=== PATIENT | male | born 1960 | race Caucasian/White ===

== ENCOUNTER 2016-08-15 10:17 | Emergency (ER) | payer BC ==
--- NOTE | ~2016-08-15 | CT2 ---
[facility] A Service of [facility] & [facility] RADIOLOGY TEXT RESULTS PATIENT: STEPAN MAHAN LOCATION: SED : 62 UNIT #: [id number] AGE: [address]: Shar Koenig MD SEX: M ORDER DR: [id number] [address] [address] [id number] E MR#: [id number] #: [id number] NAME: STEPAN MAHAN : 1960 SEX: M STUDY DATE/TIME: 08/15/2016 1200 UNIT: SED ROOM: STUDY DESCRIPTION: CT Abd and Pelv W Cont Attending Physician: Shar Koenig M.D. Ordering Physician: Shar Koenig M.D. Primary Care Physician: Juni Miner M.D. MEDICAL IMAGING REPORT This report is preliminary unless electronic signature is present. EXAM CT abdomen and pelvis with contrast 08/15/2016 12 o'clock hours HISTORY Patient complained of abdominal pain, vomiting and diarrhea after eating shell fish on 08/11/2016. COMPARISON CT abdomen 07/30/[address] images were obtained from the lung bases through the pubic symphysis with intravenous contrast only. Sagittal and coronal reconstructions were performed. Contrast was Isovue-370 100 mL IV. Total exam DLP 2230 mGy-cm. This CT exam was performed with one or more of the following radiation dose reduction techniques: automatic exposure control, adjustment of mA and/or kV according to patient size, and iterative reconstruction. FINDINGS Images through the lung bases demonstrate stable emphysematous change. There is a stable 4-5 mm noncalcified nodule in the right middle lobe unchanged from 07/30/2015 likely benign. Images through the abdomen demonstrate low attenuation of the liver consistent with fatty change similar to prior exam. The spleen, pancreas and bile ducts are normal. The gallbladder is very contracted. No stones are seen. The adrenal glands are normal. The kidneys demonstrate cysts bilaterally. There is an exophytic dense lesion from the lower pole left kidney measuring 1.8 cm and 69 Hounsfield units. This has increased from 1.6 cm on 07/30/2015. Differential STS. [facility] A Service of [facility] & [facility] RADIOLOGY TEXT RESULTS PATIENT: STEPAN MAHAN LOCATION: SED : 62 UNIT #: [id number] AGE: [address]: Shar Koenig MD SEX: M ORDER DR: considerations include a complex dense cyst versus a solid renal mass. Further characterization is warranted if not recently performed. Consider further initial evaluation with ultrasound. Consider multiphase renal mass protocol CT if ultrasound cannot confirm cystic nature of this lesion. The abdominal aorta is normal in caliber. There are no renal or ureteral calculi. The stomach is contracted and unopacified but appears normal. There is no small bowel distension. There is slightly increased amount of fluid in the small bowel but no wall thickening. The terminal ileum is normal. There is no evidence of appendicitis or colonic wall thickening. The patient is noted to have a few lymph nodes which are mildly prominent and including a node anterior to the dome of the liver measuring 1.7 cm previously 1.7 cm. There are very small lymph nodes in the central mesenteric fat all measuring less than 1 cm and some inguinal nodes bilaterally. The largest right inguinal node is 2.1 x 1.7 cm similar to 07/30/2015. IMPRESSION 1. There is no bowel obstruction, renal or ureteral stone. There is slightly increased amount of fluid in the small bowel which can be seen in enteritis. There is no bowel wall thickening. 2. Bilateral renal cysts but no stones. 3. Indeterminate exophytic lesion from the lower pole left kidney measuring 1.8 cm previously 1.6 cm on 07/30/2015. This measures 63 Hounsfield units and could therefore represent a complex cyst versus an enhancing mass. Suggest further evaluation with renal ultrasound. If renal ultrasound does not confirm this to be cystic, then further evaluation with a multiphase renal mass protocol CT is recommended. 4. There are small mildly prominent lymph nodes present anterior to the liver measuring 1.7 cm with small mesenteric nodes and small inguinal nodes. These nodes are similar to 07/30/2015 favoring a benign etiology. 1. Dictated by... Pao Escalera M.D. THIS IS AN ELECTRONICALLY VERIFIED REPORT Pao Escalera M.D. at 08/16/2016 9:29 AM Gaetano TD: 08/15/2016 16:59 JOB #: [id number] MEDICAL IMAGING REPORT Page 1 of 1
[~2016-08-15 10:17] MED LIST: ALBUTEROL17 GM INH; ALEVE220 M1; BENZONATATE PO; CATAFLAM50 MG PO; CELEXA; CLEOCIN150 MG; DICYCLOMINE HCL20 MG PO; DOCUSATE SODIU100 MG PO; FLEXERIL PO; IBUPROFEN800 MG; MEDROL4 MG/DOSE- PO; NO MEDICATIONS; PHENERGAN W/CO120 ML PO; PHENERGAN25 MG PO; PREDNISONE PO; PREDNISONE50 MG PO; TYLENOL #3 PO; ULTRAM PO; VICODIN; VOLTAREN50 MG PO; ZITHROMAX PO
[2016-08-15 11:02] LABS: URINE SOURCE CLEAN CATCH
[2016-08-15 11:04] LABS: URINE APPEARANCE CLEAR; URINE BILIRUBIN NEG (NEG); URINE BLOOD NEG (NEG); URINE COLOR YELLOW; URINE GLUCOSE NEG (NORM); URINE KETONE NEG (NEG); URINE LEUKOCYTE ESTERASE NEG (NEG); URINE NITRATE NEG (NEG); URINE PROTEIN 2+ (NEG); URINE SPECIFIC GRAVITY 1.025 (1.003-1.035); URINE UROBILINOGEN 0.2 MG/DL (NORM)
[2016-08-15 11:07] LABS: MICRO INDICATED? YES
[2016-08-15 11:08] LABS: CULTURE INDICATED? NO; URINE BACTERIA NEG (NEG); URINE HYALINE CAST 0-2 /[HPF]; URINE MUCUS PRESENT; URINE RBC 0-2 /[HPF] (0-2); URINE SQUAMOUS EPITHELIAL CELL FEW /[HPF]; URINE WBC 0-2 /[HPF] (0-5); URINE WHITE BLOOD CELL CAST 0-2 /[HPF]
[2016-08-15 11:09] LABS: URINE GRANULAR CAST 0-2 /[HPF]
[2016-08-15 11:22] LABS: BASOPHIL# 0.1 X10e3 (0-0.3); BASOPHIL% 0.8 % (0-2.5); DIFF IND NO; EOSINOPHIL# 0.2 X10e3 (0-0.7); EOSINOPHIL% 3.1 % (0.0-7.0); HEMATOCRIT 45.7 % (38.0-50.0); HEMOGLOBIN 15.3 gm/dL (13.0-16.0); LYMPHOCYTE# 1.9 X10e3 (1.0-3.5); LYMPHOCYTE% 26.5 % (17.0-45.0); MEAN CELL VOLUME 91.9 FL (83-96); MEAN CORPUSCULAR HEMOGLOBIN 30.8 PG (28-34); MEAN CORPUSCULAR HGB CONC 33.5 g/dL (30-36); MEAN PLATELET VOLUME 9.4 FL (6.5-11.5); MONOCYTE# 0.7 X10e3 (0-1.0); MONOCYTE% 9.9 % (3.0-12.0); NEUTROPHIL# 4.3 X10e3 (1.5-7.1); NEUTROPHIL% 59.7 % (40-75); PLATELET COUNT 164 X10e3 (140-420); RED BLOOD COUNT 4.98 X10e (3.90-5.60); WHITE BLOOD COUNT 7.2 X10e3 (4.0-10.5)
[2016-08-15 11:39] LABS: ALBUMIN SERUM 3.6 g/dL (3.5-5.0); ALKALINE PHOSPHATASE 46 U/L (32-92); ALT (SGPT) 39 U/L (10-40); AST (SGOT) 29 U/L (10-42); BILIRUBIN,TOTAL 0.2 mg/dL (0.2-2.0); BLOOD UREA NITROGEN 21 mg/dL (9-23); CALCIUM SERUM 8.6 mg/dL (8.4-10.2); CARBON DIOXIDE 29 mmol/L (22-31); CHLORIDE 99 mmol/L (100-111); GLOM FILT RATE Estimated 84.4 mL/min (>60); GLUCOSE FASTING 96 mg/dL (70-110); LIPASE 42 U/L (22-51); POTASSIUM 3.7 mmol/L (3.5-5.1); PROTEIN TOTAL SERUM 7.5 g/dL (6.0-8.3); SODIUM 136 mmol/L (135-145)
[2016-08-15 11:40] LABS: BILIRUBIN, DIRECT <0.1 mg/dL (0.0-0.2); BILIRUBIN,INDIRECT 0.1 mg/dL (0.0-0.9)
[2016-08-15 11:45] LABS: POC - CKMB 1.4 ng/mL (0.0-7.9); POC - TROPONIN <0.05 ng/mL (<=0.05)
== END 2016-08-15 13:29 | disposition home or self-care (01) ==
LOC: SED 10:17
PROVIDERS: Emergency Medicine
DX: K52.9 Noninfective gastroenteritis and colitis, unspecified (principal); F17.200 Nicotine dependence, unspecified, uncomplicated
CPT/HCPCS: 36415; 74177; 80048; 80076; 81003; 82553; 83690; 84484; 85025; 96361; 96374; 96375; 99284; J2405; Q9967